=== PATIENT | female | born 1990 | race Caucasian/White ===

== ENCOUNTER 2019-04-12 08:00 | Outpatient (CLI) | payer OTHER ==
[2019-04-14 19:03] LABS: TRICHOMONAS VAGINALIS DNA NEGATIVE (NEGATIVE)
== END 2019-04-12 23:59 | disposition home or self-care (01) ==
LOC: LAB.R 08:00
PROVIDERS: ATTEND Nurse Practitioner Obstetrics & Gynecology
DX: Z36.85 Encounter for antenatal screening for Streptococcus B (principal)
CPT/HCPCS: 87491; 87591; 87661; 87797

== ENCOUNTER 2019-05-04 17:19 | Inpatient (IN) | payer OTHER ==
[~2019-05-04 17:19] MED LIST: AMPICILLIN 2 GM in SODIUM CHLORIDE 0.9% MINIBAG 100 ML IV ONE; LACTATED RINGERS 1,000 ML IV SCH; SODIUM CHLORIDE FLUSH 0.9% 10 ML SYRINGE IVP PRN; SODIUM CHLORIDE FLUSH 0.9% 10 ML SYRINGE IVP SCH
[2019-05-04 18:20] LABS: BASOPHILS % (AUTO) 0.5 %; EOSINOPHILS % (AUTO) 0.3 %; HGB - HEMOGLOBIN 7.6 g/dL (12.0-16.0); LYMPHOCYTES # (AUTO) 1.3 10^3/uL (1.5-3.5); LYMPHOCYTES % (AUTO) 16.8 %; MEAN CORPUSCULAR HEMOGLOBIN 18.5 pg (27.0-31.0); MEAN CORPUSCULAR HGB CONC 27.2 g/dL (32.0-36.0); MEAN PLATELET VOLUME 10.2 fL (7.9-10.8); MONOCYTES # (AUTO) 0.7 10^3/uL (0.0-1.0); MONOCYTES % (AUTO) 8.2 %; NEUTROPHILS # (AUTO) 5.9 10^3/uL (1.5-6.6); NEUTROPHILS % (AUTO) 73.6 %; PLT - PLATELET COUNT 356 10^3/uL (130-450); RED CELL DISTRIBUTION WIDTH 20.5 % (12.0-15.0); WHITE BLOOD COUNT 7.9 x10^3/uL (4.8-10.8)
[2019-05-04 19:26] LABS: PLATELET ESTIMATE, MANUAL NORMAL (130-450,000) (NORMAL); PLATELET MORPHOLOGY NORMAL APPEARANCE (NORMAL)
--- NOTE | 2019-05-04 22:02 | HISTORY & PHYSICAL EXAMINATION ---
Admit History - Visit Reason Visit Reason: Other - : 4 Parity: 2 Premature: 0 Ectopic: 0 : 1 Care: positive: SONALI GALVEZ-Lottie Risk/History: positive: None Complications This : positive: None Smoking Status: Never smoker - Mother's Labs Mother's Blood Type: positive: A Mother's RH: positive: Negative GBS: positive: Group B Strep Positive Rubella Status: positive: Immune Meds/Allgy - Allergies Allergies/Adverse Reactions: Allergies Allergy/AdvReac Type Severity Reaction Status Date / Time No Known Drug Allergies Allergy Verified 05/04/19 18:03 Review of Systems - Constitutional Constitutional: denies: Fever, Chills - Eyes Eyes: denies: Blurred vision, Spots in vision, Dipolpia - Cardiovascular Cariovascular: denies: Irregular heart rate, Palpitations, Chest pain, Edema - Respiratory Respiratory: denies: SOB at rest - Gastrointestinal Gastrointestinal: denies: Abdominal pain, Constipation, Diarrhea - Integumentary Integumentary: denies: Rash, Pruritis - Neurological Neurological: denies: Headache Physical - Abdominal Exam Vital Signs: Temp Pulse Resp BP Pulse Ox 36.8 C 90 14 96/65 100 05/04/19 18:13 05/04/19 18:13 05/04/19 18:13 05/04/19 18:13 05/04/19 18:13 Uterine Resting Tone: positive: Soft - Monitoring Heart Rate Baseline: 140 Strip Review: positive: Category I - Presentation Presentation: positive: Vertex - Vaginal Exam Membranes: positive: Membranes intact Dilation (in cm): 2 Effacement (%): 50 Station: positive: -2 Cervical Position: positive: Midposition - Speculum Exam Speculum Exam Performed: positive: No Findings: positive: Other Plan for Labor - Plan For Labor I expect patient to be DC'd or transferred within 96 hours.: Yes Plan for Labor: HPI: This 28yo @ 39.1 wks gestation by 10.4wk U/S presents to [facility] for elective induction of labor secondary to her hx of precipitous delivery and accidental home followed by hemorrhage with her last . She has been a patient of [facility] since her transfer of care from [facility] at 36wks gestation. She received regular, consistent care at [facility] prior to her transfer to [facility]. Her has been complicated by anemia for which she has been taking daily FeSO4 and pt reports she has been anemic her entire life and has always "pushed my anemia over the edge". Following her last delivery it was recommended that she receive a blood transfusion following her pp hemorrhage but she declined. She is also noted to be GBS positive. Of note, she was diagnosed with subclinical hypothyroidism when she had difficulty become with her second baby. She was given medication for management however throughout that and 6 weeks her TFTs have always been WNL. Her TFTs have been checked twice during this and have remained WNL. She was placed in observation status on [facility] to receive her loading dose of IPAP for GBS prophylaxis. She will not be admitted to [facility] for active management. Dating criteria: LMP 08/03/2018 Initial ultrasound @ 10.4wks gestation c/w LMP dating Serial Exams - agree OB Hx: G1: 05/28/2011; 40wks G2: 06/2014; 6wks SAB G3: 05/2017; 40wks ; precipitous accidental home with hemorrhage G4: current PMHx: Migraines, anemia, anxiety Surgical Hx: [place] teeth removal 2008; Exploratory Lap 05/2016 @ [place] Social Hx: Never smoker, no ETOH or IVDA. [employer]ie active duty Family Hx: HTN- mother, father; uterine cancer - mother; diabetes - mother; GA - brother Medications: PNV; FeSO4; Fiber choice Allergies: NKDA labs: A NEG; antibody neg rubella immune Hgb/Hct 11/01/18 10.4/32.6; 02/01/2019 8.6/29.4 11/01/18 TSH 1.806, T4 0.83; 02/01/2019 TSH 2.976, T4 0.73 GC/CT neg Hep B neg; Hep C neg HIV neg Glucola 125 GBS POSITIVE Genetic testing: not performed Immunizations: Tdap 03/08/2019 Influenza declined Rhogam 02/22/2019 Ultrasounds: Initial ultrasound @ 10.4wks gestation c/w LMP dating FAS WNL with exception of poor visualization of cardiac structures. 3VC. Anterior placenta, no previa. Size c/w dating F/u completion FAS WNL Physical Exam: Heart RRR w/o M/G/R Lungs CTAB Abdomen gravid, soft, nontender FHR baseline 135, moderate variability, + accels, no decels No contractions noted via tocometry SVE 3/70/-1, vertex, misposition, soft AROM moderate amount of clear fluid Bilateral LE's no edema Assessment: 28yo @ 39.1wks gestation Anemia GBS positive Plan: Admit for active management AROM x 4 hours and if not in early labor, will initiate pitocin with titration per protocol IPAP for GBS prophylaxis Type and cross for 2 units secondary to significant anemia on admission Continuous monitoring Epidural per maternal request Reviewed plan of care with pt, , and labor RN at the bedside who are all in agreement with above plan and deny further questions or concerns at this time. Reviewed importance of active management of the third stage secondary to her hx of pp hemorrhage in combination with anemia. Anticipate
[2019-05-04] MEDS: AMPICILLIN 1 GM in SODIUM CHLORIDE 0.9% MINIBAG 100 ML IV SCH (22:30)
[2019-05-04] MEDS ORDERED: miSOPROStoL 200 MCG TABLET ONE (22:36)
[2019-05-04] MEDS ORDERED: OXYTOCIN/DEXTROSE 5 % 30 UNIT/500 ML BAG IV ONE (22:36)
[2019-05-05] MEDS: OXYTOCIN/DEXTROSE 5 % 30 UNIT/500 ML BAG IV SCH ×2 (02:10→11:03)
[2019-05-05] MEDS: AMPICILLIN 1 GM in SODIUM CHLORIDE 0.9% MINIBAG 100 ML IV SCH (02:35)
[2019-05-05] MEDS ORDERED: ROPIVACAINE 0.2% 200 MG/100 ML BAG EP ONE (03:25)
[2019-05-05] MEDS ORDERED: ROPIVACAINE 0.2% 200 MG/100 ML BAG EP PRN (04:19)
[2019-05-05] MEDS ORDERED: NALOXONE 0.4 MG/ML VIAL IVP PRN (04:21)
[2019-05-05] MEDS ORDERED: ONDANSETRON 4 MG/2 ML VIAL IVP PRN ×2 (04:21)
[2019-05-05] MEDS ORDERED: diphenhydrAMINE INJ 50 MG/ML VIAL IVP PRN ×2 (04:21)
[2019-05-05] MEDS ORDERED: ePHEDrine 50 MG/ML VIAL IVP PRN (04:21)
[2019-05-05] MEDS ORDERED: METOCLOPRAMIDE 10 MG/2 ML VIAL IVP PRN (04:21)
[2019-05-05] MEDS ORDERED: NALBUPHINE 10 MG/ML AMP IVP PRN ×2 (04:21)
[2019-05-05] MEDS ORDERED: LACTATED RINGERS 500 ML IV ONE (04:21)
[2019-05-05] MEDS: ONDANSETRON 4 MG/2 ML VIAL IVP PRN ×2 (04:57→08:15)
[2019-05-05] MEDS ORDERED: miSOPROStoL 200 MCG TABLET ONE ×2 (04:59→07:18)
[2019-05-05] MEDS ORDERED: METHYLERGONOVINE 0.2 MG/ML AMP ONE ×3 (05:00→07:16)
--- NOTE | 2019-05-05 05:08 | PROVIDER PROGRESS NOTE ---
Labor Progress Note - Uterine Monitoring Uterine Monitoring Mode: positive: External toco Contraction Frequency (min/apart): 4-5 Contraction Intensity: positive: Strong Uterine Resting Tone: positive: Soft - Monitoring Monitor Mode: positive: External ultrasound Heart Rate Baseline: 120 Heart Rate Variability: positive: Moderate (6-25 bmp) Accelerations: positive: Present, 15x15 Decelerations: positive: None Strip Review: positive: Category I - Vaginal Exam Dilation (in cm): 8 Effacement (%): 100 Station: 0 Cervical Position: Anterior - Labor Progress Note Labor Progress Note/Additional Text: S: Patient feeling increased pressure and nausea. Relatively comfortable with her epidural but feels the pressure is very intense. O: FHR baseline 120s, moderate variability, + accels, no decels Contractions palpate strong every 4-5 minutes with soft resting tone SVE 8/100/0, soft, anterior A: 28yo @ 39.2wks gestation Active labor GBS pos Anemia AROM x 7 hours FHR Category I P: Continue active management with titration of pitocin per protocol Continuous monitoring Misoprostol at the bedside and methergine on ice in anticipation for/prevention of pp hemorrhage. Anticipate
[2019-05-05] MEDS ORDERED: fentaNYL 100 MCG/2 ML VIAL ONE (06:52)
[2019-05-05] MEDS ORDERED: SODIUM CHLORIDE 0.9% 500 ML ONE (06:58)
[2019-05-05] MEDS ORDERED: ROPIVACAINE 0.2% PF 20 ML AMPULE ONE (07:02)
[2019-05-05] MEDS ORDERED: CARBOPROST TROMETHAMINE 250 MCG/ML AMP IM ONE ×2 (07:09→07:17)
--- NOTE | 2019-05-05 07:10 | ANESTHESIA ---
Pre-Anesthesia VS, & Labs - Diagnosis Active labor - Procedure Labor epidural Vital Signs: Temp Pulse Resp BP Pulse Ox 37.3 C 113 H 24 129/78 100 05/05/19 07:01 05/05/19 07:01 05/05/19 07:01 05/05/19 07:01 05/04/19 18:13 Height 5 ft 3 in Weight (kg) 68.946 kg - NPO Other - Is Patient ?: Yes - Lab Results Current Lab Results: Laboratory Tests 05/04/19 20:50: Blood Type Recheck A NEGATIVE 05/04/19 18:05: Blood Type A NEGATIVE, Antibody Screen POSITIVE, Antibody Identification See Comments, Crossmatch IS Only See Detail 05/04/19 18:05: WBC 7.9, RBC 4.10 L, Hgb 7.6 L, Hct 27.9 L, MCV 68.0 L, MCH 18.5 L, MCHC 27.2 L, RDW 20.5 H, Plt Count 356, MPV 10.2, Neut # (Auto) 5.9, Lymph # (Auto) 1.3 L, [place] # (Auto) 0.7, Eos # (Auto) 0.0, Baso # (Auto) 0.0, Absolute Nucleated RBC 0.02, Nucleated RBC % 0.3, Manual Slide Review Indicated, Platelet Estimate NORMAL (130-450,000), Platelet Morphology NORMAL APPEARANCE, RBC Morph Micro Appear 1+ POLYCHROMASIA Fish Bones: 05/04/19 18:05 Home Medications and Allergies Active Medications Diphenhydramine HCl (Benadryl Inj) 12.5 - 25 mg IVP Q6HR PRN PRN Reason: ITCHING Ephedrine Sulfate () 5 mg IVP Q5M PRN PRN Reason: For SBP<100;give until SBP>100 Ampicillin Sodium 1 gm/ Sodium (Chloride) 100 mls @ 200 mls/hr IV Q4H FELIPE Last Admin: 05/05/19 02:35 Dose: 200 mls/hr Lactated Ringer's (Lr) 1,000 mls @ 100 mls/hr IV .Q10H FELIPE Last Infusion: 05/05/19 05:40 Dose: Infused OXYTOCIN/DEXTROSE 5 % (Pitocin/Dextrose 5%) 30 unit in 500 mls @ 1 mls/hr IV TITR FELIPE; Protocol Last Admin: 05/05/19 02:10 Dose: 1 milliunit/min, 1 mls/hr Ropivacaine (Naropin 0.2%) 200 mg in 100 mls @ 0 mls/hr EP PRN PRN; Protocol PRN Reason: Analgesia Metoclopramide HCl (Reglan Inj) 10 mg IVP Q6HR PRN PRN Reason: Nausea / Vomiting Nalbuphine HCl (Nubain) 2.5 - 5 mg IVP Q4H PRN PRN Reason: ITCHING Naloxone HCl (Narcan) 0.1 mg IVP Q2M PRN PRN Reason: RR<8 Ondansetron HCl (Zofran Inj) 4 mg IVP Q4HR PRN PRN Reason: Nausea / Vomiting Last Admin: 05/05/19 04:57 Dose: 4 mg Ondansetron HCl (Zofran Inj) 4 mg IVP Q6HR PRN PRN Reason: Nausea / Vomiting Sodium Chloride (Normal Saline Flush 0.9%) 10 ml IVP 0100,0900,1700 FELIPE Sodium Chloride (Normal Saline Flush 0.9%) 10 ml IVP PRN PRN PRN Reason: NEEDED PER PROVIDER ORDERS Allergies/Adverse Reactions: Allergies Allergy/AdvReac Type Severity Reaction Status Date / Time No Known Drug Allergies Allergy Verified 05/04/19 18:03 Anes History & Medical History - Anesthetic History Anesthesia Complications: reports: No previous complications Family history of Anesthesia Complications: Denies - Medical History Cardiovascular: reports: None Pulmonary: reports: None Gastrointestinal: reports: None Urinary: reports: None Neuro: reports: None Musculoskeletal: reports: None Endocrine/Autoimmune: reports: None Blood Disorders: reports: None Skin: reports: None Smoking Status: Never smoker Psychosocial: reports: No issues indicated - Obstetrical History : 4 Parity: 2 Events: positive: None Complications: positive: None Exam General: Alert Dental: WNL Mouth Opening: Greater than 4 Fingerbreadths Neck Mobility: Normal Mallampati classification: I Thyromental Distance: greater than 6 cm Plan Anesthesia Type: Epidural Consent for Procedure(s) Verified and Reviewed: Yes Code Status: Attempt Resuscitation ASA classification: 2-Mild systemic disease Is this case an emergency?: Yes
[2019-05-05] MEDS ORDERED: DEXTROSE 5% 500 ML IV ONE (08:00)
[2019-05-05] MEDS ORDERED: METHYLERGONOVINE 0.2 MG/ML AMP IM PRN (08:03)
[2019-05-05] MEDS ORDERED: WITCH HAZEL/GLYCERIN 1 PAD TOP PRN (08:03)
[2019-05-05] MEDS ORDERED: HYDROCORTISONE 1% CREAM 28 GM TUBE PR PRN (08:03)
[2019-05-05] MEDS ORDERED: RHO(D) IMMUNE GLOBULIN 300 MCG SYRINGE IVP SCH (08:03)
[2019-05-05] MEDS ORDERED: CARBOPROST TROMETHAMINE 250 MCG/ML AMP IM SCH (08:03)
[2019-05-05] MEDS ORDERED: LACTATED RINGERS 1,000 ML IV ONE ×2 (08:03→10:00)
[2019-05-05] MEDS ORDERED: oxyCODONE 5 MG TABLET PO PRN (08:03)
[2019-05-05] MEDS: PROMETHAZINE 25 MG/1 ML VIAL ONE ×2 (08:11→08:30)
--- NOTE | 2019-05-05 08:14 | OPERATIVE REPORT ---
Operative Report - General Admit Date: 05/04/19 Procedure Date: 05/05/19 Planned Procedure: Manual placenta removal with Curratage Pre-Op Diagnosis: retained placenta Procedure Performed: Same Post Op Diagnosis: retained placenta - Procedure Note Primary Surgeon: Solo Arias MD Secondary Surgeon: Kala Joseph CRNA Anesthesia Provider: Milton Hong CRNA Anesthesia Technique: General ET tube Pathology: Placenta Estimated Blood Loss (mL): 300 Indications: retained Placenta
[2019-05-05] MEDS ORDERED: ONDANSETRON 4 MG/2 ML VIAL ONE (08:16)
[2019-05-05] MEDS ORDERED: SODIUM CHLORIDE FLUSH 0.9% 10 ML SYRINGE ONE (08:42)
--- OUTSIDE RECORDS SUMMARY | 2019-05-05 08:56 | EXTERNAL MEDICAL SUMMARY RPT | Clinical Summary ---
:1990 Author Name Mehnaz, EMR Application Suppo rt DebeaderMatilde Address [address] [place] [id number] PROBLEMS Condition Status Date Provider Notes GBS positive active HENRRY Huston Supervision of active AMENA Huston Screening for std active Yadira Pitt LPN screening for streptococcus B active J kell Pitt LPN ENCOUNTERS Date Type Provider Location Encounter Diagnosis - Ambulatory Kala Joseph [facility] Encounter COMPUTERIZED MILL MILL RECORDERConor Rao CPV [facility]HC HENRRY Joseph LPN Jennifer Prince, LPN VITAL SIGNS Date Observation Value Provider blood pressure, site #1 L. arm sitting Yadira Pitt LPN " blood pressure, diastolic 64 mm[Hg] Chuy Pitt LPN " blood pressure, systolic 120 mm[Hg] Julio C Pitt LPN " weight E&M 153.4 lbs. Yadira Pitt LPN " height E&M 63 [in_i] Yadira Pitt LPN Allergies No Known Allergy Information REASON FOR REFERRAL No Information Available RESULTS Date Observation Value Provider Reference Interpretation Loc ation Range / DIPSTICK URINE STRIP 369004 Yadira Pollard LOT NUMBER BEN Pitt " glucose, urine, negative Yadira Pitt LPN " bilirubin, urine negative Yadira Pitt LPN " ketones, urine, by negative Yadira test strip BEN Pitt " RBC, urine, dipstick negative Yadira Pitt LPN " protein, urine, negative Yadira semiquantitative Yoandy, [employer] (dipstick) " urobilinogen, urine, negative Yadira semiquantitative Yoandy, [employer] OFF[employer]ER (dipstick) " nitrite, urine, negative Yadira semiquantitative Yoandy, [employer] " leukocyte esterase, negative Yadira urine, by dipstick Yoandy, [employer] " appearance, urine clear Yadira Yoandy, [employer] " urine color yellow Yadira Yoandy, [employer] / specific gravity, 1.015 [place] [employer] [facility] 04 urine [place], [place] " pH, urine, 5 Zaneita semiquantitative [place] " DIPSTICK URINE STRIP [id number] Yadira LOT NUMBER Yoandy, [employer] " glucose, urine, negative Yadira semiquantitative Yoandy, [employer] OFF[employer]ER " bilirubin, urine negative Yadira Yoandy, [employer]ER " ketones, urine, by negative Yadira test strip Yoandy, [employer] OFF[employer]ER " RBC, urine, dipstick negative Yadira Yoandy, [employer] OFF[employer]ER " protein, urine, negative Yadira semiquantitative Yoandy, [employer] OFFICER (dipstick) " urobilinogen, urine, negative Yadira semiquantitative Yoandy, [employer] OFFICER (dipstick) " nitrite, urine, negative Yadira semiquantitative Yoandy, [employer] OFF[employer]ER " leukocyte esterase, negative Yadira urine, by dipstick Yoandy, [employer] OFF[employer]ER " appearance, urine clear Yadira Yoandy, [employer] OFF[employer]ER " urine color yellow Yadira Yoandy, [employer]ER HISTORY OF IMMUNIZATIONS No Information Available HISTORY OF MEDICATION USE Medication Instructions Dates Provider Comments FIBER CHOICE 1.5 GM chew 2 tablets three Yadira Gaines ce, ORAL TABLET CHEWABLE times daily [employer] FERROUS SULFATE 325 take one tablet by mouth Yadira Masseye, (65 FE) MG ORAL TABLET every other day with [employer] food or orange juice SOCIAL HISTORY Date Observation Value Provider smoking history, total pack/day n/a HENRRY Huston " drug use, illicit no Yadira Massey e, [employer] " alcohol use no Yadira Yoandy, [employer]ER " passive cigarette smoke exposure no Yadira Pitt, [employer]ER " chewing tobacco use Never Yadira chavarriae, [employer]ER " smoking status Never smoker Yadira Pitt, [employer] FUNCTIONAL STATUS No Information Available MENTAL STATUS No Information Available MEDICAL EQUIPMENT No Information Available FAMILY HISTORY Family Member Condition Father Hypertension Mother Other Medical Problems Mother Weight Disorder Mother Diabetes Mother Hypertension Full Brother Other Medical Problems INSURANCE PROVIDERS No Information Available ADVANCE DIRECTIVES No Information Available TREATMENT PLAN Date Name 0502F - SUBSEQUENT VISIT HISTORY OF PROCEDURES No Information Available GOALS No Information Available HEALTH CONCERNS No Information Available REASON FOR VISIT No Information Available
[2019-05-05] MEDS ORDERED: LACTATED RINGERS 1,000 ML IV SCH (09:00)
--- NOTE | 2019-05-05 09:17 | OPERATIVE REPORT ---
DATE OF SERVICE: 05/05/2019 Physician: Solo Arias MD PREOPERATIVE DIAGNOSES: Retained placenta. POSTOPERATIVE DIAGNOSES: Retained placenta. PROCEDURE PERFORMED: Manual removal of placenta with intrauterine curettage. SURGEON: Solo Arias MD ACCOUNT MANAGEMENT ASSISTANT: Kala Joseph, Certified Nurse City Maintenance Manager ANESTHESIA PROVIDER: Tessie Hong CRNA ANESTHESIA: General via endotracheal tube. ESTIMATED BLOOD LOSS: 150 mL FINDINGS: PT HAD A DOCUMENTED ANEMIA OF 7.6 GMS OF HGB. BECAUSE OF CONCERNS OF FURTHER BLOOD LOSS SHE WAS TAKEN EXPEDITIOUSLY TO THE OR. PRIOR TO TAKING HER BACK VERBAL CONSENT WAS OBTAINED AFTER GIVING HER INFORMED CONSENT. SHE WAS INFORMED THERE WAS A POSSIBILITY OF LOSS OF HER UTERUS IF BLEEDING COULDN'T CONTAINED. Retained placenta with central erosion of the cord with retained amniotic membranes. The patient was placed in the supine position in Michael stirrups and following a good general anesthetic, a Riley catheter was placed. She was then prepped and draped in the usual fashion. A timeout was performed, which concerns were addressed. During this time, the patient received a unit of packed red blood cells and second was being infused. At this point, a speculum was placed in the vagina. The cervix was visualized and there appeared to be a clot and placenta at the left eye of the cervix. Bleeding at this time was minor. The placenta was grasped with ring forceps and gradually and very slowly, it was teased out of the uterus. This occurred in 1 piece. Membranes were also attached at this time, and then these were also gently teased from the uterine cavity. The membranes eventually torn, and so the endometrial cavity was sharply curetted with a banjo curette in all 4 quadrants. A moderate amount of additional tissue was removed and this was curetted a second time, both anterior and posteriorly, and laterally and minimal to no further tissue was removed. The patient received Methergine at this point to have the uterus contract down. The cervix was then inspected. There was no evidence of any lacerations. The uterus and cervix were observed and there was no evidence of any further bleeding. There was a small perineal laceration, which was just very superficial. This was not closed with any sutures because it was felt that this was not necessary. The patient tolerated the procedure well and was taken to recovery in stable condition. Sponge and needle counts were correct. TD: 05/05/2019 08:31 MTDKimberlee
[2019-05-05 12:00] LABS: HGB - HEMOGLOBIN 9.9 g/dL (12.0-16.0); MEAN CORPUSCULAR HGB CONC 29.2 g/dL (32.0-36.0); MEAN PLATELET VOLUME 10.1 fL (7.9-10.8); RED BLOOD COUNT 4.71 10^6/uL (4.20-5.40); RED CELL DISTRIBUTION WIDTH 22.5 % (12.0-15.0); WHITE BLOOD COUNT 16.7 x10^3/uL (4.8-10.8)
[2019-05-05] MEDS ORDERED: PROPOFOL 200 MG/20 ML VIAL IVP ONE (14:34)
[2019-05-05] MEDS ORDERED: SUCCINYLCHOLINE 200 MG/10 ML VIAL IVP ONE (14:34)
[2019-05-05] MEDS ORDERED: fentaNYL 100 MCG/2 ML VIAL IVP ONE (14:34)
[2019-05-05] MEDS ORDERED: ONDANSETRON 4 MG/2 ML VIAL IVP ONE (14:34)
[2019-05-05] MEDS: ACETAMINOPHEN 500 MG TABLET PO SCH ×2 (16:08→20:30)
[2019-05-05] MEDS: IBUPROFEN 800 MG TABLET PO SCH ×2 (16:10→20:02)
--- NOTE | 2019-05-05 16:33 | DELIVERY NOTE ---
Delivery Note - Labor Labor: positive: Augmented by oxytocin, Induced by ARM - Delivery Method Infant Delivery Method: positive: Spontaneous vaginal delivery - Presentation Presentation: positive: Vertex, SUSIE - right occiput anterior - Nuchal Cord Nuchal Cord: positive: None - Amniotic Fluid Description Amniotic Fluid Description: positive: Clear - Episiotomy Type Episiotomy Type: positive: None - Laceration Laceration: positive: None - Delivery Outcome Delivery Outcome: positive: Livebirth - : positive: Placed in direct skin contact with mother, Stimulated, Warmed, [place] used sex: positive: Male - Cord Cord: positive: 3 vessels - Placenta Placenta: positive: Retained - Estimated Blood Loss Estimated Blood Loss (in cc): 150 - Post Delivery Events Post Delivery Events: positive: Retained placenta - Delivery Comments (Free Text/Narrative) Delivery Comments (Free Text/Narrative): Labor: This 28yo presented on 05/04/2019 at approximately 1730 at 39.1wks gestation for elective induction of labor secondary to hx of precipitous delivery with accidental home followed by hemorrhage. Upon arrival she was placed in observation to receive loading dose of Ampicillin 2g for GBS prophylaxis. AROM occurred 4hrs after infusion of antibiotics at 2226 and was noted to be a moderate amount of clear fluid. Pitocin initiated 4 hours after AROM for augmentation of labor. FHR pattern demonstrated Category I pattern throughout labor. Epidural placed per maternal request. Reviewed with nursing staff need for prompt management of the third stage of labor secondary to pt hx of pp hemorrhage in addition to diagnosed anemia and significant anemia upon admit. Patient progressed to c/c/+2 with significant increased vaginal and rectal pressure and urge to push at 0555. : Normal of viable male on 05/05/2019 at 0604. No nuchal cord. The was placed on maternal abdomen, stimulated, dried, and placed skin to skin. Pitocin administered via IV with delivery of the anterior shoulder for active management of the third stage of labor. 's were 9/9 at 1 and 5 min respectively. The umbilical cord was allowed to stop pulsating and which time it was doubly clamped by CNM and cut by FOB. 3VC. Cord blood was obtained. Fourth stage: Uterine fundus firm and there is no excessive bleeding. The perine um and vagina were inspected and found to be intact. Gentle downward traction placed on umbilical cord followed immediately by evulsion of the cord. Attempted manual removal of the placenta failed secondary to strong uterine contraction. Pitocin infusion rate decreased to 150 in attempt to allow for removal of placenta and second attempt at removal failed. Subsequently the pitocin was decreased to 50 and third attempt at manual removal failed secondary to strong uterine contraction and pt discomfort. Dr. Arias, attending physician called and requested at the bedside secondary to retained placenta. At the time of his arrival total EBL was noted to be 150mL and uterine fundus remained firm. Upon Dr. Arias's arrival at the bedside, care was handed off to physician for further management. (See physician note).
[2019-05-05 18:00] LABS: BASOPHILS # (AUTO) 0.1 10^3/uL (0.0-0.1); BASOPHILS % (AUTO) 0.3 %; HGB - HEMOGLOBIN 9.3 g/dL (12.0-16.0); LYMPHOCYTES # (AUTO) 1.2 10^3/uL (1.5-3.5); LYMPHOCYTES % (AUTO) 7.2 %; MEAN CORPUSCULAR HEMOGLOBIN 20.8 pg (27.0-31.0); MEAN CORPUSCULAR HGB CONC 28.9 g/dL (32.0-36.0); MEAN PLATELET VOLUME 10.4 fL (7.9-10.8); MONOCYTES # (AUTO) 0.9 10^3/uL (0.0-1.0); MONOCYTES % (AUTO) 5.7 %; NEUTROPHILS # (AUTO) 13.9 10^3/uL (1.5-6.6); PLT - PLATELET COUNT 309 10^3/uL (130-450); RED BLOOD COUNT 4.47 10^6/uL (4.20-5.40); RED CELL DISTRIBUTION WIDTH 22.1 % (12.0-15.0); WHITE BLOOD COUNT 16.2 x10^3/uL (4.8-10.8)
[2019-05-05 19:13] LABS: PLATELET ESTIMATE, MANUAL NORMAL (130-450,000) (NORMAL); PLATELET MORPHOLOGY NORMAL APPEARANCE (NORMAL)
[2019-05-05] MEDS ORDERED: ACETAMINOPHEN 1,000 MG/100 ML 100 ML IV ONE (21:00)
[2019-05-05] MEDS: DOCUSATE SODIUM 100 MG CAPSULE PO SCH (21:59)
[2019-05-05] MEDS ORDERED: KETOROLAC 30 MG/ML VIAL IVP SCH (22:00)
[2019-05-06] MEDS: ACETAMINOPHEN 500 MG TABLET PO SCH ×2 (04:18→12:38)
[2019-05-06] MEDS: IBUPROFEN 800 MG TABLET PO SCH ×2 (04:18→12:38)
--- NOTE | 2019-05-06 10:43 | PROVIDER PROGRESS NOTE ---
Subjective - Prog Note Date Prog Note Date: 05/06/19 Prog Note Time: 10:41 - Subjective Pt reports feeling: Improved Subjective: No complaints. Up and ambulating, tolerating po, pain well managed. Voiding. Ready for discharge, likely pm. Objective - Vital Signs/Intake & Output Vital Signs: Vital Signs x48h Temp Pulse Resp BP Pulse Ox 05/06/19 08:27 97.7 F 68 18 101/52 L 99 05/06/19 04:15 98.8 F 63 18 83/48 L 98 Intake & Output: Intake & Output 05/03/19 05/04/19 05/05/19 05/06/19 23:59 23:59 23:59 23:59 Intake Total 100 2258.883 250 Output Total 2210 650 Balance 100 48.883 -400 - Objective General Appearance: positive: No acute distress Respiratory: positive: No respiratory distress, Breath sounds nml Cardiovascular: positive: Regular rate & rhythm Abdomen: positive: Non-tender, No distention, Other (soft, FF below umbi) Extremities: positive: Non-tender, No pedal edema Neurologic/Psychiatric: positive: Oriented x3 - Lab Results Fish Bones: 05/05/19 17:56 Other Labs: Lab Results x24hrs 05/05/19 05/05/19 05/05/19 Range/Units 17:56 11:55 11:55 WBC 16.2 H 16.7 H (4.8-10.8) x10^3/uL RBC 4.47 4.71 (4.20-5.40) 10^6/uL Hgb 9.3 L 9.9 L (12.0-16.0) g/dL Hct 32.2 L 33.9 L (37.0-47.0) % MCV 72.0 L 72.0 L (81.0-99.0) fL MCH 20.8 L 21.0 L (27.0-31.0) pg MCHC 28.9 L 29.2 L (32.0-36.0) g/dL RDW 22.1 H 22.5 H (12.0-15.0) % Plt Count 309 339 (130-450) 10^3/uL MPV 10.4 10.1 (7.9-10.8) fL Neut # (Auto) 13.9 H (1.5-6.6) 10^3/uL Lymph # (Auto) 1.2 L (1.5-3.5) 10^3/uL [place] # (Auto) 0.9 (0.0-1.0) 10^3/uL Eos # (Auto) 0.0 (0.0-0.7) 10^3/uL Baso # (Auto) 0.1 (0.0-0.1) 10^3/uL Absolute Nucleated RBC 0.03 x10^3/uL Nucleated RBC % 0.2 /100WBC Manual Slide Review Indicated Platelet Estimate NORMAL (130-450,000) (NORMAL) Platelet Morphology NORMAL APPEARANCE (NORMAL) RBC Morph Micro Appear 1+ SCHISTOCYTES (NORMAL) Blood Type A NEGATIVE Weak D (Du) WEAK-D NEGATIVE Antibody Screen Antibody Identification Maternal Bleed NEGATIVE (NEGATIVE) Crossmatch 05/04/19 Range/Units 18:05 WBC (4.8-10.8) x10^3/uL RBC (4.20-5.40) 10^6/uL Hgb (12.0-16.0) g/dL Hct (37.0-47.0) % MCV (81.0-99.0) fL MCH (27.0-31.0) pg MCHC (32.0-36.0) g/dL RDW (12.0-15.0) % Plt Count (130-450) 10^3/uL MPV (7.9-10.8) fL Neut # (Auto) (1.5-6.6) 10^3/uL Lymph # (Auto) (1.5-3.5) 10^3/uL [place] # (Auto) (0.0-1.0) 10^3/uL Eos # (Auto) (0.0-0.7) 10^3/uL Baso # (Auto) (0.0-0.1) 10^3/uL Absolute Nucleated RBC x10^3/uL Nucleated RBC % /100WBC Manual Slide Review Platelet Estimate (NORMAL) Platelet Morphology (NORMAL) RBC Morph Micro Appear (NORMAL) Blood Type A NEGATIVE Weak D (Du) Antibody Screen POSITIVE Antibody Identification See Comments Maternal Bleed (NEGATIVE) Crossmatch See Detail Assessment/Plan - Problem List (1) Vaginal delivery Impression: Meeting goals for discharge Rhogam given 05/05/19 HCT stable Routine DC instructions given
--- NOTE | 2019-05-06 10:54 | DISCHARGE SUMMARY ---
Discharge Summary Admit Date: 05/04/19 Discharge Date: 05/06/19 Discharging Provider: MD Kinsey Primary Care Provider: Kala Joseph CNM Code Status: Attempt Resuscitation - DIAGNOSES Admission Diagnoses: IUP at 39+1 wga Anemia Hx of hemorrhage Discharge Diagnoses with Status of Each Condition: Same and delivery of term gestation Anemia: s/p transfusion with 2 units PRBCs Retained placenta requiring D&C for extraction - HPI History of Present Illness: This 28yo @ 39.1 wks gestation by 10.4wk U/S was admitted to [facility] for elective induction of labor secondary to her hx of precipitous delivery and accidental home followed by hemorrhage with her last . She has been a patient of [facility] since her transfer of care from [facility] at 36wks gestation. She received regular, consistent care at [facility] prior to her transfer to [facility]. Her has been complicated by anemia for which she has been taking daily FeSO4 and pt reports she has been anemic her entire life and has always "pushed my anemia over the edge". Following her last delivery it was recommended that she receive a blood transfusion following her pp hemorrhage but she declined. She is also noted to be GBS positive. Of note, she was diagnosed with subclinical hypot hyroidism when she had difficulty become with her second baby. She was given medication for management however throughout that and 6 weeks her TFTs have always been WNL. Her TFTs have been checked twice during this and have remained WNL. She was placed in observation status on [facility] to receive her loading dose of IPAP for GBS prophylaxis. She was fully admitted to [facility] when actively laboring. Dating criteria: LMP 08/03/2018 Initial ultrasound @ 10.4wks gestation c/w LMP dating - HOSPITAL COURSE Hospital Course: This 28yo presented on 05/04/2019 at approximately 1730 at 39.1wks gestation for elective induction of labor secondary to hx of precipitous delivery with accidental home followed by hemorrhage. Upon arrival she was placed in observation to receive loading dose of Ampicillin 2g for GBS prophylaxis. AROM occurred 4hrs after infusion of antibiotics at 2226 and was noted to be a moderate amount of clear fluid. Pitocin initiated 4 hours after AROM for augmentation of labor. FHR pattern demonstrated Category I pattern throughout labor. Epidural placed per maternal request. Reviewed with nursing staff need for prompt management of the third stage of labor secondary to pt hx of pp hemorrhage in addition to diagnosed anemia and significant anemia upon admit. Patient progressed to c/c/+2 with significant increased vaginal and rectal pressure and urge to push at 0555. : Normal of viable male on 05/05/2019 at 0604. No nuchal cord. The was placed on maternal abdomen, stimulated, dried, and placed skin to skin. Pitocin administered via IV with delivery of the anterior shoulder for active management of the third stage of labor. 's were 9/9 at 1 and 5 min respectively. The umbilical cord was allowed to stop pulsating and which time it was doubly clamped by CNM and cut by FOB. 3VC. Cord blood was obtained. Fourth stage: Uterine fundus firm and there is no excessive bleeding. The perineum and vagina were inspected and found to be intact. Gentle downward traction placed on umbilical cord followed immediately by evulsion of the cord. Attempted manual removal of the placenta failed secondary to strong uterine contraction. Pitocin infusion rate decreased to 150 in attempt to allow for removal of placenta and second attempt at removal failed. Subsequently the pitocin was decreased to 50 and third attempt at manual removal failed secondary to strong uterine contraction and pt discomfort. Dr. Arias, attending physician called and requested at the bedside secondary to retained placenta. At the time of his arrival total EBL was noted to be 150mL and uterine fundus remained firm. Upon Dr. Arias's arrival at the bedside, care was handed off to physician for further management. Patient was brought to the OR for D&C of retained placenta. Procedure was uncomplicated. Total EBL, for delivery and D&C was 300 cc. She had been preemptively tranfused with 2 units PRBCs given baseline anemia wiht starting HCT of 27.9. Transfusion was well tolerated. Received Rhogam on 05/05/19. Post-operative/ course was complicated only by nausea. By PPD#2, she was meeting goals for discharge and discharge to home. Discharge meds sent electronically to [facility] pharmacy via [employer] [place] [place]. - ALLERGIES Allergies/Adverse Reactions: Allergies Allergy/AdvReac Type Severity Reaction Status Date / Time No Known Drug Allergies Allergy Verified 05/04/19 18:03 - LABS Result Diagrams: 05/05/19 17:56 - FOLLOW UP Follow Up: In one week with Kala Joseph CNM - TIME SPENT Time Spent in Discharge (Minutes): 60
[2019-05-06] MEDS: DOCUSATE SODIUM 100 MG CAPSULE PO SCH (12:38)
[2019-05-06 12:57] VITALS: BP 93/51
--- NOTE | 2019-05-06 15:04 | Labor Flowsheet ---
Labor Flowsheet Datetime Report Generated by CPN: 05/06/2019 15:03 Datetime: 05/06/2019 12:55 VITAL SIGNS NBP Sys/Sivan/Mean (mmHg): 93 : 51 : 61 Pulse: 58 LaborFlag: Antepartum Datetime: 05/06/2019 12:54 SpO2 (%): 100 Datetime: 05/05/2019 06:38 COMMUNICATION Communication: Call/Page Placed to Provider Communication Comments: Anesthesia and OB oncall both called in for pt's retained placenta. Datetime: 05/05/2019 06:18 Membranes Ruptured Date/Time: 05/04/2019 22:26 Amniotic Fluid Odor: Normal Datetime: 05/05/2019 06:03 STAGE 2 Pushing: Coached on Pushing Pushing Position: Pushing with Contractions Pushing Progress: Descent with Pushing; with Pushing; Pushing Effectively with Contraction s Datetime: 05/05/2019 06:00 UTERINE ACTIVITY Monitor Mode: External Frequency (min): 1.5-3.5 Quality: Strong Duration (sec): 50-100 Pattern: Normal: <= 5 Contractions in 10 Minutes Resting Tone (Palpate): Relaxed ASSESSMENT A Monitor Mode: Telemetry FHR Baseline Rate : 115 Variability: Minimal - Undetectable to <=5 bpm Accelerations: None Decelerations: Variable Actions for Decelerations: Side to Side Category: Category II Datetime: 05/05/2019 05:55 VAGINAL EXAM Dilatation (cm): 10.0 Effacement (%): 100 Station: 1 Exam by: A. Jake, CNM Datetime: 05/05/2019 05:38 MEDICATIONS Pitocin (milliunits): Increased to @ 4 PATIENT CARE IV/Blood Work: New IV Bag Hung Datetime: 05/05/2019 05:24 Monitor Interventions for UA: [place] Adjusted Datetime: 05/05/2019 05:17 Patient Position/Activity: Left Lateral Datetime: 05/05/2019 05:05 Amniotic Fluid Color: Clear Amniotic Fluid Amount: Moderate MATERNAL ASSESSMENT Level of Consciousness: Fully Conscious DTR's/Clonus: DTRs 2+; No Clonus Headache: Denies Breath Sounds, Left: Clear and Equal Breath Sounds, Right: Clear and Equal Nausea/Vomiting: Denies RUQ Epigastric Pain: Denies Datetime: 05/05/2019 05:01 PAIN Pain Scale: 5 Pain Presence: Intermittent Pain Type: Contraction; Pressure Datetime: 05/05/2019 04:57 Antiemetics/Antacids: Zofran (mg) @ 4 Datetime: 05/05/2019 04:34 Patient Care Comments: throne position Datetime: 05/05/2019 04:23 Provider Notified (Name): A. Jake CNM Notification Reason: Status Update; Labor Status; Pain Datetime: 05/05/2019 04:04 Epidural Procedure Other: Pump Started Datetime: 05/05/2019 04:03 ANESTHESIA Epidural Procedure: Loading Dose Datetime: 05/05/2019 03:53 Anesthesia Comments: 200ml bolus started Datetime: 05/05/2019 02:36 Antibiotics: Ampicillin IV 1 Gm Datetime: 05/05/2019 02:00 Temperature (C): 36.8 Temperature Route: Oral Datetime: 05/05/2019 01:51 Monitor Interventions for FHR: Ultrasound Adjusted Datetime: 05/04/2019 23:33 Pain Coping: Sleeping Datetime: 05/04/2019 23:03 Comfort Measures: Breathing/Relaxation; Family Support
== END 2019-05-06 14:35 | disposition home or self-care (01) | DRG 807 ==
LOC: WFO 17:19 → FBP 17:30 → WFO 22:25 → UNDOADMIN 22:26 → FBP 22:26 → UNDODISIN 05-06 14:35
PROVIDERS: ADMIT Nurse Practitioner Obstetrics & Gynecology; ATTEND Obstetrics & Gynecology
PROC: 10907ZC Drainage of Amniotic Fluid, Therapeutic from Products of Conception, Via Natural or Artificial Opening (ICD-10-PCS; 2019-05-04)
PROC: 10D17Z9 Manual Extraction of Products of Conception, Retained, Via Natural or Artificial Opening (ICD-10-PCS; 2019-05-05)
PROC: 10E0XZZ Delivery of Products of Conception, External Approach (ICD-10-PCS; principal; 2019-05-05 07:00)
DX: O99.824 Streptococcus B carrier state complicating childbirth (principal); Z37.0 Single live birth; O99.02 Anemia complicating childbirth; O73.0 Retained placenta without hemorrhage; O69.89X0 Labor and delivery complicated by other cord complications, not applicable or unspecified; Z3A.39 39 weeks gestation of pregnancy; Z87.898 Personal history of other specified conditions; Z79.899 Other long term (current) drug therapy; Z86.39 Personal history of other endocrine, nutritional and metabolic disease
CPT/HCPCS: 36415; 83033; 85025; 85027; 86850; 86870; 86900; 86901; 86922; A9270; J0131; J0330; J2765; J3490; J7120; P9016; 86920